=== PATIENT | male | born 1975 | race Caucasian/White ===

== ENCOUNTER 2017-04-20 02:02 | Emergency (ER) | payer OTHER ==
[~2017-04-20] VITALS: Ht 174 cm; Wt 99.6 kg
[~2017-04-20 02:02] MED LIST: METF-384 PO; TRAM-10 PO
[2017-04-20 02:05] VITALS: TEMP 36.8; Ht 174 cm; Wt 99.6 kg
[2017-04-20] MEDS ORDERED: ATOR-22 PO (02:29)
[2017-04-20] MEDS ORDERED: MULT-506 PO (02:29)
[2017-04-20] MEDS ORDERED: LSN25 PO (02:29)
[2017-04-20 02:46] LABS: HEMATOCRIT 41.5 % (42-52); MEAN CELL VOLUME 89.8 fL (80-100); MEAN CORPUSCULAR HEMOGLOBIN 31.6 pg (25-34); MEAN CORPUSCULAR HGB CONC 35.2 g/dl (32-36); MEAN PLATELET VOLUME 9.5 fL (7.4-10.4); PLATELET COUNT 377 K/uL (130-400); RED BLOOD COUNT 4.62 M/uL (4.7-6.1); WHITE BLOOD COUNT 13.39 K/uL (4.8-10.8)
[2017-04-20 03:05] LABS: BASO % 0.4 %; BASO ABS # 0.05 K/uL (0-0.2); COMPLETE YES; EOS % 3.7 %; IG% 0.4 %; LYMPH % 39.4 %; LYMPH ABS # 5.27 K/uL (1.2-3.4); MONO % 10.6 %; NEUT % 45.5 %
[2017-04-20 03:07] LABS: BUN/CREATININE RATIO 17.1 (10-20); CALCIUM 9.3 mg/dl (8.5-10.1); CREATININE 1.4 mg/dl (0.60-1.40); POTASSIUM 3.7 mmol/L (3.5-5.1)
[2017-04-20] MEDS ORDERED: ONDANSETRON INJ 2 MG/ML 2 ML VIAL IV STA (03:10)
[2017-04-20] MEDS ORDERED: MoRPHine SULFATE 10 MG/ML CARP/VIAL IM STA (03:10)
--- NOTE | 2017-04-20 03:13 | EMERGENCY ROOM VISIT NOTE ---
History First contact with patient: 02:09 Chief Complaint: ABDOMINAL PAIN Stated Complaint: ABD PAIN Nursing Triage Summary: Severe abd pain above umbilicus. Pain increases when sitting. Pt denies n/v. Pt is diabetic type 2. Sx started 6 hrs ago. History of Present Illness The patient is a 41 year old male who presents to the Emergency Room with complaints of 6 hours of abdominal pain. The pain initially started this afternoon while at work and has gradually worsened throughout the evening. The pain is 7/10, at the umbilicus, sharp, not radiating, worse with sitting, and constant. He also describes some tingling to his groins. He has a history of diverticulitis but he states that this pain is different as this is more localized. He denies any nausea, vomiting, diarrhea, constipation, fevers, chills, burning with urination, or testicular pain. Review of Systems See HPI for pertinent positives and negatives. A total of ten systems were reviewed and were otherwise negative. Past Medical/Surgical History Medical Problems: (1) Diabetes (2) Diverticulitis Family History Cancer Diabetes mellitus Social History Smoking Status: Former Smoker Marital Status: Housing Status: lives with significant other Occupation Status: employed Current/Historical Medications Scheduled Atorvastatin (Lipitor), 20 MG PO HS Lisinopril (Lisinopril), 2.5 MG PO HS Metformin Hcl (Glucophage), 1,000 MG PO BID Multivitamin (Multivitamin), 1 TAB PO QAM Allergies Coded Allergies: No Known Allergies (Unverified , 04/20/17) Physical Exam Vital Signs Date Time Temp Pulse Resp B/P Pulse Ox O2 Delivery O2 Flow Rate FiO2 04/20/17 05:48 70 16 127/67 98 Room Air 04/20/17 03:51 76 16 134/76 98 Room Air 04/20/17 02:05 36.8 100 18 133/82 95 Room Air Physical Exam GENERAL: Awake, alert, well-appearing, in mild distress HENT: Normocephalic, atraumatic. EYES: Normal conjunctiva. Sclera non-icteric. NECK: Supple. Trachea midline. RESPIRATORY: Clear to auscultation. CARDIAC: Regular rate, normal rhythm. Extremities warm and well perfused. Pulses equal. ABDOMEN: Soft, non-distended. Tenderness to palpation over umbilicus. No rebound or guarding. No masses. RECTAL: Deferred. MUSCULOSKELETAL: Chest examination reveals no tenderness. The back is symmetrical on inspection without obvious abnormality. There is no CVA tenderness to palpation. LOWER EXTREMITIES: Calves are equal size bilaterally and non-tender. No edema. No discoloration. NEURO: Normal sensorium. No sensory or motor deficits noted. SKIN: No rash or jaundice noted. Medical Decision & Procedures Laboratory Results 04/20/17 02:35 Red Blood Count 4.62, Mean Corpuscular Volume 89.8, Mean Corpuscular Hemoglobin 31.6, Mean Corpuscular Hemoglobin Concent 35.2, Mean Platelet Volume 9.5, Neutrophils (%) (Auto) 45.5, Lymphocytes (%) (Auto) 39.4, Monocytes (%) (Auto) 10.6, Eosinophils (%) (Auto) 3.7, Basophils (%) (Auto) 0.4, Neutrophils # (Auto ) 6.09, Lymphocytes # (Auto) 5.27, Monocytes # (Auto) 1.42, Eosinophils # (Auto ) 0.50, Basophils # (Auto) 0.05 04/20/17 02:35 Test 04/20/17 02:35 White Blood Count 13.39 K/uL (4.8-10.8) Red Blood Count 4.62 M/uL (4.7-6.1) Hemoglobin 14.6 g/dL (14.0-18.0) Hematocrit 41.5 % (42-52) Mean Corpuscular Volume 89.8 fL (80-100) Mean Corpuscular Hemoglobin 31.6 pg (25-34) Mean Corpuscular Hemoglobin Concent 35.2 g/dl (32-36) Platelet Count 377 K/uL (130-400) Mean Platelet Volume 9.5 fL (7.4-10.4) Neutrophils (%) (Auto) 45.5 % Lymphocytes (%) (Auto) 39.4 % Monocytes (%) (Auto) 10.6 % Eosinophils (%) (Auto) 3.7 % Basophils (%) (Auto) 0.4 % Neutrophils # (Auto) 6.09 K/uL (1.4-6.5) Lymphocytes # (Auto) 5.27 K/uL (1.2-3.4) Monocytes # (Auto) 1.42 K/uL (0.11-0.59) Eosinophils # (Auto) 0.50 K/uL (0-0.5) Basophils # (Auto) 0.05 K/uL (0-0.2) RDW Standard Deviation 44.2 fL (36.4-46.3) RDW Coefficient of Variation 13.4 % (11.5-14.5) Immature Granulocyte % (Auto) 0.4 % Immature Granulocyte # (Auto) 0.06 K/uL (0.00-0.02) Red Blood Cell Morphology Unremarkable Anion Gap 8.0 mmol/L (3-11) Est Creatinine Clear Calc Drug Dose 78.5 ml/min Estimated GFR () 70.8 Estimated GFR (Non- 61.1 BUN/Creatinine Ratio 17.1 (10-20) Calcium Level 9.3 mg/dl (8.5-10.1) Total Bilirubin 0.2 mg/dl (0.2-1) Direct Bilirubin 0.1 mg/dl (0-0.2) Aspartate Amino Transf (AST/SGOT) 79 U/L (15-37) Alanine Aminotransferase (ALT/SGPT) 99 U/L (12-78) Alkaline Phosphatase 60 U/L (45-117) Total Protein 7.6 gm/dl (6.4-8.2) Albumin 4.0 gm/dl (3.4-5.0) Lipase 139 U/L (73-393) Medications Administered Medications (Trade) Dose Ordered Sig/Alfredo Route Start Time Stop Time Status Last Admin Dose Admin Morphine Sulfate (MoRPHine SULFATE INJ) 6 mg NOW STAT IM 04/20/17 03:10 04/20/17 03:11 DC 04/20/17 03:33 6 MG Ondansetron HCl (Zofran Inj) 4 mg NOW STAT IV 04/20/17 03:10 04/20/17 03:11 DC 04/20/17 03:33 4 MG Ketorolac Tromethamine (Toradol Inj) 30 mg NOW STAT IV 04/20/17 06:10 04/20/17 06:11 DC 04/20/17 06:28 30 MG Magnesium Citrate (Citrate Of Magnesia Soln) 296 ml ONE ONCE PO 04/20/17 06:15 04/20/17 06:16 DC 04/20/17 06:28 296 ML Medical Decision Patient is 41 year old male that presents with abdominal pain - Lab Investigations: CBC, BMP, LFTs, Lipase - Imaging: Abdominal Xray - Medications: 6mg Morphine IV, 4mg Zofran IV - After pain medication given patient states that pain level improved - Abdominal X ray reveals moderate stool load in the intestines, no visible obstruction - Elevated WBC, with mild elevation of AST and LFT - Ordered CT Abdomen/Pelvis with IV Contrast Patient states that pain has improved although still having moderate amount of pain - IV Toradol 30mg - Patient discharged with Magnesium Citrate for constipation Impression Primary Impression: Abdominal pain Departure Information Dispostion Home / Self-Care Condition GOOD Referrals Argelia Bonilla DO (PCP) Patient Instructions [facility] Problem Qualifiers Primary Impression: Abdominal pain Abdominal location: periumbilical Qualified Codes: R10.33 - Periumbilical pain
[2017-04-20] MEDS ORDERED: OPTIRAY 320 IV PRN (04:30)
--- NOTE | 2017-04-20 05:54 | EMERGENCY ROOM VISIT NOTE ---
ED Visit Note First contact with patient: 02:09 Resident Physician Supervision Note: I interviewed and examined the patient. Discussed with Dr. Ponce and agree with findings and plan as documented in the note. The patient's abdominal exam reveals moderate discomfort with even light palpation around the umbilicus. There were no skin changes or findings to suggest cellulitis. CT scan of the abdomen reveals a small fat containing umbilical hernia. Documented By: Ekaterina Mcdaniel
[2017-04-20] MEDS ORDERED: KETOROLAC TROMETHAMINE 30 MG/ML VIAL IV STA (06:10)
[2017-04-20] MEDS ORDERED: MAGNESIUM CITRATE 296 ML/BTL PO ONE (06:15)
[2017-04-20 07:18] VITALS: BP 137/62; PULSE 66; O2SAT 99
--- NOTE | 2017-04-20 07:47 | DIAGNOSTIC IMAGING REPORT ---
ABDOMEN AND PELVIS CT WITH IV CONTRAST CT DOSE: 703.95 mGy.cm HISTORY: History of diverticulitis, Umbilical Pain TECHNIQUE: Multiaxial CT images of the abdomen and pelvis were performed following the use of intravenous contrast. COMPARISON STUDY: Abdomen and pelvis CT 12/14/2014. FINDINGS: Mild dependent changes seen within the lung bases. No fractures within the visualized osseous structures. Hepatic steatosis. Cholecystectomy. The pancreas, spleen, and adrenal glands are unremarkable. Normal kidneys. Tiny fat-containing umbilical hernia. There is mild skin thickening at the umbilicus. Normal bladder. Tiny fat-containing left inguinal hernia. No bowel wall thickening or obstruction. Normal appendix. IMPRESSION: 1. No bowel wall thickening or obstruction. 2. Colonic diverticulosis. 3. Cholecystectomy. 4. Tiny fat-containing umbilical hernia. There is also mild skin thickening at the umbilicus. This could represent a focal cellulitis. Electronically signed by: Reji Medina M.D. 04/20/2017 7:46 AM Dictated Date/Time: 04/20/2017 7:41 AM
--- NOTE | 2017-04-20 08:52 | DIAGNOSTIC IMAGING REPORT ---
CHEST AND ABDOMEN 2 VIEWS HISTORY: Generalized abdominal pain. COMPARISON: Abdomen and pelvis CT 08/25/2014. FINDINGS: A few bibasilar linear densities favor scarring or atelectasis. The lungs are otherwise clear. Cholecystectomy. The cardiomediastinal silhouette is within normal limits. There is no pneumoperitoneum or pneumatosis. The bowel gas pattern is unremarkable. No evidence for bowel obstruction. No renal or ureteral calculi. IMPRESSION: No acute cardiopulmonary process. No evidence for bowel obstruction. Electronically signed by: Reji Medina M.D. 04/20/2017 8:51 AM Dictated Date/Time: 04/20/2017 8:50 AM
== END 2017-04-20 07:20 | disposition home or self-care (01) ==
LOC: C.EDB 02:03 → C.EDA 07:20
DX: R10.33 Periumbilical pain (principal); E11.9 Type 2 diabetes mellitus without complications; Z87.19 Personal history of other diseases of the digestive system; Z87.891 Personal history of nicotine dependence; Z83.3 Family history of diabetes mellitus; Z79.84 Long term (current) use of oral hypoglycemic drugs; Z79.899 Other long term (current) drug therapy

== ENCOUNTER → 2018-03-27 | Outpatient (CLI) | payer OTHER ==
[~2018-03-27] MED LIST changes: +ATOR-22 PO; +LSN25 PO; +MULT-506 PO; -TRAM-10 PO
== END | disposition home or self-care (01) ==
LOC: C.RDSM 15:00
PROVIDERS: ATTEND Orthopaedic Surgery Sports Medicine
DX: R52 Pain, unspecified (principal)